=== PATIENT | male | born 1990 | race Hispanic/Latino ===

== ENCOUNTER 2017-07-30 15:42 | Emergency (ER) | payer OTHER ==
[~2017-07-30 15:42] MED LIST: CEPH500B PO
[2017-07-30] MEDS ORDERED: KETOROLAC TROMETHAMINE 30MG/ML ONE (16:08)
[2017-07-30 16:09] LABS: APPEARANCE,URINE Clear (CLEAR); BILIRUBIN,URINE Negative (NEGATIVE); COLOR,URINE Dark Yellow (YELLOW); GLUCOSE, URINE (UA) Negative (NEGATIVE); KETONES,URINE Negative (NEGATIVE); LEUKOCYTE ESTERASE ,URINE Negative (NEGATIVE); NITRATE,URINE Negative (NEGATIVE); OCCULT BLOOD,URINE Negative (NEGATIVE); PROTEIN,URINE Trace (NEGATIVE)
[2017-07-30 16:14] LABS: BASOPHILS % (AUTO) 0.7 % (0.0-5.0); EOSINOPHILS % (AUTO) 1.9 % (0.0-8.0); HEMATOCRIT 44.5 % (42-54); LYMPHOCYTES % (AUTO) 20.9 % (21.0-51.0); MEAN CORPUSCULAR HEMOGLOBIN 29.3 pg (27.0-33.0); MEAN CORPUSCULAR HGB CONC 34.2 g/dL (32.0-36.0); MEAN CORPUSCULAR VOLUME 85.6 fL (79-99); MONOCYTES % (AUTO) 3.1 % (3.0-13.0); NEUTROPHILS % (AUTO) 73.4 % (40.0-77.0); PLATELET COUNT (AUTO) 267 K/uL (130-400); WHITE BLOOD COUNT (AUTO) 9.5 K/uL (4.8-10.8)
[2017-07-30 16:25] LABS: CREATININE 1.1 mg/dL (0.5-1.5); POTASSIUM 3.5 mmol/L (3.5-5.1)
== END 2017-07-30 16:58 | disposition home or self-care (01) ==
LOC: EDH 15:42
DX: R30.0 Dysuria (principal); R10.30 Lower abdominal pain, unspecified; Z72.0 Tobacco use
CPT/HCPCS: 36415; 80048; 81003; 85025; 87486; 87797; 96372; 99284; J1885

== ENCOUNTER 2018-07-28 07:41 | Emergency (ER) | payer SELFPAY ==
[2018-07-28] MEDS ORDERED: LIDOCAINE 5% TOPICAL PATCH TP ONE (08:51)
[2018-07-28] MEDS ORDERED: KETOROLAC TROMETHAMINE 60 MG/2 ML VIAL ONE (08:51)
[2018-07-28] MEDS ORDERED: ORPHENADRINE CITRATE 30 MG/ML ML ONE (08:51)
== END 2018-07-28 10:14 | disposition home or self-care (01) ==
LOC: EDH 07:41
DX: S29.092A Other injury of muscle and tendon of back wall of thorax, initial encounter (principal); M62.830 Muscle spasm of back; Z90.49 Acquired absence of other specified parts of digestive tract; Z87.891 Personal history of nicotine dependence; X50.1XXA Overexertion from prolonged static or awkward postures, initial encounter; Y93.89 Activity, other specified; Y92.89 Other specified places as the place of occurrence of the external cause; Y99.8 Other external cause status
CPT/HCPCS: 96372 ×2; 99284; J1885; J2360

== ENCOUNTER 2021-06-20 04:58 | Inpatient (IN) | payer OTHER ==
[~2021-06-20] VITALS: Ht 180.3 cm; Wt 105.0 kg
[2021-06-20 05:22] LABS: BASOPHILS % (AUTO) 0.6 % (0.0-5.0); EOSINOPHILS % (AUTO) 4.6 % (0.0-8.0); HEMATOCRIT 48.1 % (42-54); MEAN CORPUSCULAR HEMOGLOBIN 29.2 pg (27.0-33.0); MEAN CORPUSCULAR HGB CONC 33.5 g/dL (32.0-36.0); MEAN CORPUSCULAR VOLUME 87.1 fL (79-99); MONOCYTES % (AUTO) 7.3 % (3.0-13.0); NEUTROPHILS % (AUTO) 52.4 % (40.0-77.0); PLATELET COUNT (AUTO) 229 K/uL (130-400); RED BLOOD CELL COUNT(AUTO) 5.52 MIL/uL (4.50-6.20); RED CELL DISTRIBUTION WIDTH 12.7 % (11.0-15.5); WHITE BLOOD COUNT (AUTO) 7.3 K/uL (4.8-10.8)
[2021-06-20 05:31] LABS: CREATININE 0.8 mg/dL (0.5-1.5); POTASSIUM 3.8 mmol/L (3.5-5.1)
[2021-06-20 05:36] LABS: ALBUMIN 4.2 g/dL (3.5-5.0); BILIRUBIN,TOTAL 0.5 mg/dL (0.2-1.0); TOTAL PROTEIN, SERUM 8.6 g/dL (6.0-8.3)
[2021-06-20 05:56] LABS: APPEARANCE,URINE CLEAR (CLEAR); BILIRUBIN,URINE NEGATIVE (NEGATIVE); COLOR,URINE YELLOW (YELLOW); GLUCOSE, URINE (UA) NEGATIVE (NEGATIVE); KETONES,URINE NEGATIVE (NEGATIVE); LEUKOCYTE ESTERASE ,URINE NEGATIVE (NEGATIVE); NITRATE,URINE NEGATIVE (NEGATIVE); OCCULT BLOOD,URINE NEGATIVE (NEGATIVE); PROTEIN,URINE TRACE mg/dL (NEGATIVE)
[2021-06-20] MEDS ORDERED: 0.9%NACL 1000ML 1,000 ML IV ONE (06:00)
[2021-06-20] MEDS ORDERED: KETOROLAC 15MG/ML VIAL (15MG/ML) IV ONE (06:00)
[2021-06-20] MEDS ORDERED: ZOSYN 3.375GM+NS 50ML 50 ML ONE (08:26)
[2021-06-20] MEDS ORDERED: 0.9%NACL 50ML 50 ML IV ONE (08:27)
[2021-06-20] MEDS ORDERED: ZOSYN 3.375GM +NS 50ML IV ONE (08:30)
[2021-06-20] MEDS: LACTATED RINGERS 1000ML 1,000 ML IV SCH (09:00)
[2021-06-20] MEDS: ZOSYN 3.375GM +NS 50ML IV SCH ×2 (16:19→22:10)
[2021-06-20] MEDS: MORPHINE 2 MG SYG IVP PRN (16:20)
[2021-06-20 17:28] VITALS: BP 124/74
[2021-06-20 20:28] VITALS: BP 128/77
[2021-06-21] MEDS: LACTATED RINGERS 1000ML 1,000 ML IV SCH ×3 (00:14→21:07)
[2021-06-21 00:28] VITALS: BP 106/62
[2021-06-21 04:28] VITALS: BP 122/67
[2021-06-21] MEDS: ZOSYN 3.375GM +NS 50ML IV SCH ×3 (05:23→21:06)
[2021-06-21] MEDS ORDERED: NAPR-1023 PO (07:19)
[2021-06-21 07:38] LABS: BASOPHILS % (AUTO) 0.6 % (0.0-5.0); EOSINOPHILS % (AUTO) 2.8 % (0.0-8.0); HEMATOCRIT 42.5 % (42-54); LYMPHOCYTES % (AUTO) 22.4 % (21.0-51.0); MEAN CORPUSCULAR HEMOGLOBIN 28.4 pg (27.0-33.0); MEAN CORPUSCULAR HGB CONC 33.2 g/dL (32.0-36.0); MEAN CORPUSCULAR VOLUME 85.7 fL (79-99); MONOCYTES % (AUTO) 5.8 % (3.0-13.0); NEUTROPHILS % (AUTO) 68.1 % (40.0-77.0); PLATELET COUNT (AUTO) 209 K/uL (130-400); RED BLOOD CELL COUNT(AUTO) 4.96 MIL/uL (4.50-6.20); RED CELL DISTRIBUTION WIDTH 12.5 % (11.0-15.5); WHITE BLOOD COUNT (AUTO) 6.9 K/uL (4.8-10.8)
[2021-06-21 08:00] VITALS: BP 122/68
[2021-06-21 08:43] LABS: CREATININE 0.9 mg/dL (0.5-1.5); POTASSIUM 3.8 mmol/L (3.5-5.1)
[2021-06-21 11:39] VITALS: BP 123/68
[2021-06-21] MEDS: MORPHINE 2 MG SYG IVP PRN (14:50)
[2021-06-21 16:00] VITALS: BP 132/73
[2021-06-21 20:28] VITALS: BP 130/79
[2021-06-22] VITALS (7 sets, daily range): BP systolic 122–129; BP diastolic 70–78
[2021-06-22 04:37] LABS: BASOPHILS % (AUTO) 0.7 % (0.0-5.0); EOSINOPHILS % (AUTO) 4.2 % (0.0-8.0); HEMATOCRIT 41.6 % (42-54); LYMPHOCYTES % (AUTO) 27.1 % (21.0-51.0); MEAN CORPUSCULAR HEMOGLOBIN 29.1 pg (27.0-33.0); MEAN CORPUSCULAR HGB CONC 33.4 g/dL (32.0-36.0); MEAN CORPUSCULAR VOLUME 87.2 fL (79-99); MONOCYTES % (AUTO) 6.8 % (3.0-13.0); NEUTROPHILS % (AUTO) 60.8 % (40.0-77.0); PLATELET COUNT (AUTO) 229 K/uL (130-400); RED BLOOD CELL COUNT(AUTO) 4.77 MIL/uL (4.50-6.20); RED CELL DISTRIBUTION WIDTH 12.2 % (11.0-15.5); WHITE BLOOD COUNT (AUTO) 7.5 K/uL (4.8-10.8)
[2021-06-22 05:05] LABS: ALBUMIN 3.5 g/dL (3.5-5.0); BILIRUBIN,TOTAL 0.9 mg/dL (0.2-1.0); CREATININE 0.9 mg/dL (0.5-1.5); POTASSIUM 3.1 mmol/L (3.5-5.1); TOTAL PROTEIN, SERUM 7.5 g/dL (6.0-8.3)
[2021-06-22] MEDS: LACTATED RINGERS 1000ML 1,000 ML IV SCH ×2 (05:26→16:54)
[2021-06-22] MEDS: ZOSYN 3.375GM +NS 50ML IV SCH ×3 (05:26→20:03)
[2021-06-23] MEDS ORDERED: LIDOCAINE HCL-MPF 1% 2ML VIAL IV PRN (01:30)
[2021-06-23] MEDS ORDERED: POTASSIUM CHLORIDE 20MEQ/100ML 100 ML IV PRN (01:30)
[2021-06-23 04:23] VITALS: BP 135/70
[2021-06-23] MEDS: ZOSYN 3.375GM +NS 50ML IV SCH ×3 (05:16→20:53)
[2021-06-23 05:19] LABS: HEMATOCRIT 42.5 % (42-54); MEAN CORPUSCULAR HEMOGLOBIN 28.6 pg (27.0-33.0); MEAN CORPUSCULAR HGB CONC 33.6 g/dL (32.0-36.0); RED CELL DISTRIBUTION WIDTH 12.1 % (11.0-15.5)
[2021-06-23 05:32] LABS: POTASSIUM 3.7 mmol/L (3.5-5.1)
[2021-06-23 08:00] VITALS: BP 127/78
[2021-06-23] MEDS ORDERED: DEXTROSE 5 %-0.45 % NACL 500 ML IV SCH (08:30)
[2021-06-23 12:00] VITALS: BP 146/86
[2021-06-23] MEDS ORDERED: DEXTROSE 5 %-0.45 % NACL 1,000 ML IV SCH (12:30)
[2021-06-23 16:00] VITALS: BP 104/69
[2021-06-23 19:00] VITALS: BP 115/80
[2021-06-23] MEDS ORDERED: GLUCAGON 1MG KIT 1 MG ML IM PRN (21:30)
[2021-06-23] MEDS ORDERED: DEXTROSE 50%-WATER 50 ML DISP.SYRIN IV PRN (21:30)
[2021-06-24] VITALS: BP 139/75
[2021-06-24 04:00] VITALS: BP 118/68
[2021-06-24] MEDS: ZOSYN 3.375GM +NS 50ML IV SCH ×3 (04:37→20:39)
[2021-06-24 04:41] LABS: HEMATOCRIT 43.4 % (42-54); MEAN CORPUSCULAR HEMOGLOBIN 29.1 pg (27.0-33.0); MEAN CORPUSCULAR HGB CONC 33.9 g/dL (32.0-36.0); MEAN CORPUSCULAR VOLUME 85.8 fL (79-99); RED BLOOD CELL COUNT(AUTO) 5.06 MIL/uL (4.50-6.20); RED CELL DISTRIBUTION WIDTH 12.5 % (11.0-15.5); WHITE BLOOD COUNT (AUTO) 8.8 K/uL (4.8-10.8)
[2021-06-24 04:47] LABS: CREATININE 1.1 mg/dL (0.5-1.5); POTASSIUM 3.4 mmol/L (3.5-5.1)
[2021-06-24 08:00] VITALS: BP 151/74
[2021-06-24] MEDS: ONDANSETRON 4MG INJ IVP PRN (09:07)
[2021-06-24 12:01] VITALS: BP 133/79
[2021-06-24 16:00] VITALS: BP 134/81
[2021-06-24 19:00] VITALS: BP 134/81
[2021-06-25] VITALS: BP 133/70
[2021-06-25 04:00] VITALS: BP 106/74
[2021-06-25 04:21] LABS: HEMATOCRIT 45.9 % (42-54); MEAN CORPUSCULAR HEMOGLOBIN 28.4 pg (27.0-33.0); MEAN CORPUSCULAR HGB CONC 33.1 g/dL (32.0-36.0); MEAN CORPUSCULAR VOLUME 85.8 fL (79-99); RED BLOOD CELL COUNT(AUTO) 5.35 MIL/uL (4.50-6.20); RED CELL DISTRIBUTION WIDTH 12.5 % (11.0-15.5); WHITE BLOOD COUNT (AUTO) 9.3 K/uL (4.8-10.8)
[2021-06-25] MEDS: ZOSYN 3.375GM +NS 50ML IV SCH ×3 (04:32→20:52)
[2021-06-25 04:37] LABS: CREATININE 0.9 mg/dL (0.5-1.5); POTASSIUM 3.3 mmol/L (3.5-5.1)
[2021-06-25] MEDS ORDERED: IOHEXOL-350 75 ML VIAL IV ONE (07:30)
[2021-06-25 08:00] VITALS: BP 124/69
[2021-06-25] MEDS ORDERED: KCL 20 MEQ ERTAB PO PRN (09:30)
[2021-06-25] MEDS ORDERED: LIDOCAINE HCL-MPF 1% 2ML VIAL IV PRN (09:30)
[2021-06-25] MEDS ORDERED: POTASSIUM CHLORIDE 20MEQ/100ML 100 ML IV PRN (09:30)
[2021-06-25] MEDS ORDERED: POTASSIUM CHLORIDE 10% ELIXIR 20 MEQ/15 ML UDCUP PO PRN (09:30)
[2021-06-25 12:00] VITALS: BP 115/71
[2021-06-25 15:52] VITALS: BP 115/67
[2021-06-25 19:00] VITALS: BP 147/86
[2021-06-25] MEDS: ONDANSETRON 4MG INJ IVP PRN (23:15)
[2021-06-26] VITALS: BP 129/78
[2021-06-26 04:00] VITALS: BP 124/71
[2021-06-26] MEDS: ZOSYN 3.375GM +NS 50ML IV SCH (04:19)
[2021-06-26 04:44] LABS: HEMATOCRIT 45.3 % (42-54); MEAN CORPUSCULAR HEMOGLOBIN 29.2 pg (27.0-33.0); MEAN CORPUSCULAR HGB CONC 34.2 g/dL (32.0-36.0); MEAN CORPUSCULAR VOLUME 85.3 fL (79-99); RED BLOOD CELL COUNT(AUTO) 5.31 MIL/uL (4.50-6.20); RED CELL DISTRIBUTION WIDTH 12.7 % (11.0-15.5); WHITE BLOOD COUNT (AUTO) 10.6 K/uL (4.8-10.8)
[2021-06-26 04:58] LABS: CREATININE 1.1 mg/dL (0.5-1.5); POTASSIUM 3.2 mmol/L (3.5-5.1)
[2021-06-26 07:54] VITALS: BP 131/72
[2021-06-26] MEDS ORDERED: METR-172 PO (09:38)
[2021-06-26] MEDS ORDERED: DICY10CA13 PO (09:38)
[2021-06-26] MEDS ORDERED: SULF1TAB42 PO (09:51)
[2021-06-26] MEDS ORDERED: POTASSIUM CHLORIDE 10% ELIXIR 20 MEQ/15 ML UDCUP PO SCH (10:00)
== END 2021-06-26 10:45 | disposition home or self-care (01) | DRG 379 ==
LOC: EDH 04:58 → EDHIP 04:59 → 4DH 15:22
PROVIDERS: ADMIT Hospitalist; ATTEND Hospitalist
DX: K57.21 Diverticulitis of large intestine with perforation and abscess with bleeding (principal); E87.6 Hypokalemia; Z90.49 Acquired absence of other specified parts of digestive tract; Z82.49 Family history of ischemic heart disease and other diseases of the circulatory system; F17.210 Nicotine dependence, cigarettes, uncomplicated; E66.9 Obesity, unspecified; Z68.32 Body mass index [BMI] 32.0-32.9, adult
CPT/HCPCS: 36415; 74176; 74177; 80048; 80053; 81003; 83690; 84145; 85025; 85027; 87077; 87088; 87186; 93005; G0378; J1885; J2405; J2543; J3480; J3490; J7120; Q9967

== ENCOUNTER 2021-06-27 18:54 | Emergency (ER) | payer OTHER ==
[~2021-06-27] VITALS: Ht 180.3 cm; Wt 106.6 kg
[~2021-06-27 18:54] MED LIST changes: -CEPH500B PO; +DICY10CA13 PO; +METR-172 PO; +SULF1TAB42 PO
[2021-06-27 19:25] LABS: CREATININE 1.1 mg/dL (0.5-1.5); POTASSIUM 3.5 mmol/L (3.5-5.1)
[2021-06-27 19:27] LABS: BASOPHILS % (AUTO) 0.6 % (0.0-5.0); EOSINOPHILS % (AUTO) 2.9 % (0.0-8.0); HEMATOCRIT 49.6 % (42-54); LYMPHOCYTES % (AUTO) 20.4 % (21.0-51.0); MEAN CORPUSCULAR HEMOGLOBIN 28.3 pg (27.0-33.0); MEAN CORPUSCULAR HGB CONC 32.9 g/dL (32.0-36.0); MEAN CORPUSCULAR VOLUME 86.3 fL (79-99); MONOCYTES % (AUTO) 5.9 % (3.0-13.0); NEUTROPHILS % (AUTO) 69.9 % (40.0-77.0); PLATELET COUNT (AUTO) 286 K/uL (130-400); RED BLOOD CELL COUNT(AUTO) 5.75 MIL/uL (4.50-6.20); RED CELL DISTRIBUTION WIDTH 12.5 % (11.0-15.5); WHITE BLOOD COUNT (AUTO) 8.9 K/uL (4.8-10.8)
[2021-06-27] MEDS ORDERED: FAMOTIDINE 20MG VIAL IV ONE ×2 (19:29→19:30)
[2021-06-27] MEDS ORDERED: DiphenhydrAMINE HCL 50 MG/ML VIAL ONE (19:29)
[2021-06-27] MEDS ORDERED: ONDANSETRON 4MG INJ ONE (19:29)
[2021-06-27 19:30] LABS: ALBUMIN 4.3 g/dL (3.5-5.0); BILIRUBIN,TOTAL 0.6 mg/dL (0.2-1.0)
[2021-06-27] MEDS ORDERED: ONDANSETRON 4MG INJ IVP ONE (19:30)
[2021-06-27] MEDS ORDERED: DiphenhydrAMINE HCL 50 MG/ML VIAL IV ONE (19:30)
[2021-06-27 20:48] VITALS: BP 126/71
== END 2021-06-27 20:54 | disposition home or self-care (01) ==
LOC: EDH 18:54
DX: K57.92 Diverticulitis of intestine, part unspecified, without perforation or abscess without bleeding (principal); Z79.1 Long term (current) use of non-steroidal anti-inflammatories (NSAID); Z90.49 Acquired absence of other specified parts of digestive tract
CPT/HCPCS: 36415; 80053; 83690; 85025; 96374; 96375; 99284; J1200; J2405; J3490

== ENCOUNTER 2021-07-05 20:01 | Emergency (ER) | payer OTHER ==
[~2021-07-05] VITALS: Ht 154.9 cm; Wt 109.3 kg
[2021-07-05 20:07] VITALS: BP 138/79
== END 2021-07-05 20:47 | disposition home or self-care (01) ==
LOC: EDH 20:01
DX: R21 Rash and other nonspecific skin eruption (principal); T37.3X5A Adverse effect of other antiprotozoal drugs, initial encounter; Y92.89 Other specified places as the place of occurrence of the external cause; Z90.49 Acquired absence of other specified parts of digestive tract
CPT/HCPCS: 99281

== ENCOUNTER 2021-07-11 01:14 | Inpatient (IN) | payer OTHER ==
[~2021-07-11] VITALS: Ht 180.3 cm; Wt 105.2 kg
[2021-07-11 01:46] LABS: BASOPHILS % (AUTO) 0.7 % (0.0-5.0); EOSINOPHILS % (AUTO) 5.1 % (0.0-8.0); HEMATOCRIT 47.2 % (42-54); LYMPHOCYTES % (AUTO) 26.7 % (21.0-51.0); MEAN CORPUSCULAR HEMOGLOBIN 29.2 pg (27.0-33.0); MEAN CORPUSCULAR HGB CONC 33.3 g/dL (32.0-36.0); MEAN CORPUSCULAR VOLUME 87.7 fL (79-99); MONOCYTES % (AUTO) 6.9 % (3.0-13.0); NEUTROPHILS % (AUTO) 60.4 % (40.0-77.0); PLATELET COUNT (AUTO) 234 K/uL (130-400); RED BLOOD CELL COUNT(AUTO) 5.38 MIL/uL (4.50-6.20); RED CELL DISTRIBUTION WIDTH 12.8 % (11.0-15.5); WHITE BLOOD COUNT (AUTO) 8.2 K/uL (4.8-10.8)
[2021-07-11] MEDS ORDERED: ONDANSETRON 4MG INJ ONE (01:46)
[2021-07-11] MEDS ORDERED: MORPHINE 4 MG SYG ONE (01:46)
[2021-07-11 01:53] LABS: APPEARANCE,URINE Clear (CLEAR); BILIRUBIN,URINE Negative (NEGATIVE); COLOR,URINE Yellow (YELLOW); GLUCOSE, URINE (UA) Negative (NEGATIVE); KETONES,URINE Negative (NEGATIVE); LEUKOCYTE ESTERASE ,URINE Negative (NEGATIVE); NITRATE,URINE Negative (NEGATIVE); OCCULT BLOOD,URINE Negative (NEGATIVE); PROTEIN,URINE Negative (NEGATIVE); UROBILINOGEN,URINE 0.2 mg/dL (0.2-1.0)
[2021-07-11 01:58] LABS: CREATININE 1.2 mg/dL (0.5-1.5); POTASSIUM 3.2 mmol/L (3.5-5.1)
[2021-07-11] MEDS ORDERED: MORPHINE 4 MG SYG IVP ONE (02:00)
[2021-07-11] MEDS ORDERED: ONDANSETRON 4MG INJ IVP ONE (02:00)
[2021-07-11 02:02] LABS: ALBUMIN 4.2 g/dL (3.5-5.0); BILIRUBIN,TOTAL 0.5 mg/dL (0.2-1.0); CRP QUANTITATIVE 11.4 mg/L (0.00-9.0); TOTAL PROTEIN, SERUM 8.7 g/dL (6.0-8.3)
[2021-07-11] MEDS ORDERED: IOHEXOL-350 75 ML VIAL IV ONE (02:58)
[2021-07-11] MEDS ORDERED: ZOSYN 3.375GM +NS 50ML IV SCH (04:00)
[2021-07-11] MEDS ORDERED: DIATR MEGLU/DIATRIZOATE SODIUM 30 ML BOTTLE ONE (04:48)
[2021-07-11] MEDS ORDERED: ACETAMINOPHEN 325 MG TAB PO PRN ×2 (06:00)
[2021-07-11] MEDS ORDERED: LACTULOSE 20 GM/30 ML UDCUP PO PRN (06:00)
[2021-07-11] MEDS: 0.9%NACL 1000ML 1,000 ML IV SCH ×2 (06:34→21:03)
[2021-07-11 09:39] VITALS: BP 120/76
[2021-07-11 12:28] VITALS: BP 104/64
[2021-07-11] MEDS: ZOSYN 3.375GM+NS 50ML 50 ML IV SCH ×2 (13:00→20:32)
[2021-07-11] MEDS: POTASSIUM CHLORIDE 20MEQ/100ML 100 ML IV PRN ×2 (13:29→20:33)
[2021-07-11] MEDS: LIDOCAINE HCL-MPF 1% 2ML VIAL IV PRN ×2 (13:29→20:32)
[2021-07-11] MEDS: MORPHINE 2 MG SYG IV PRN (14:58)
[2021-07-11 16:13] VITALS: BP 108/67
[2021-07-11 19:00] VITALS: BP 108/67
[2021-07-11] MEDS: METRONIDAZOLE 500MG/100ML BAG 100 ML IVPB SCH (21:02)
[2021-07-12] VITALS (7 sets, daily range): BP systolic 100–119; BP diastolic 61–72
[2021-07-12] MEDS: 0.9%NACL 1000ML 1,000 ML IV SCH ×3 (01:03→20:52)
[2021-07-12] MEDS: ONDANSETRON 4MG INJ IV PRN ×3 (01:10→21:01)
[2021-07-12] MEDS: ZOSYN 3.375GM+NS 50ML 50 ML IV SCH ×3 (04:07→20:40)
[2021-07-12] MEDS: METRONIDAZOLE 500MG/100ML BAG 100 ML IVPB SCH ×3 (04:55→21:01)
[2021-07-12 05:35] LABS: BASOPHILS % (AUTO) 0.7 % (0.0-5.0); EOSINOPHILS % (AUTO) 6.1 % (0.0-8.0); HEMATOCRIT 41.5 % (42-54); LYMPHOCYTES % (AUTO) 21.1 % (21.0-51.0); MEAN CORPUSCULAR HEMOGLOBIN 28.9 pg (27.0-33.0); MEAN CORPUSCULAR VOLUME 87.6 fL (79-99); MONOCYTES % (AUTO) 9.4 % (3.0-13.0); NEUTROPHILS % (AUTO) 62.4 % (40.0-77.0); PLATELET COUNT (AUTO) 187 K/uL (130-400); RED BLOOD CELL COUNT(AUTO) 4.74 MIL/uL (4.50-6.20); RED CELL DISTRIBUTION WIDTH 12.7 % (11.0-15.5); WHITE BLOOD COUNT (AUTO) 6.1 K/uL (4.8-10.8)
[2021-07-12 06:13] LABS: ALBUMIN 3.4 g/dL (3.5-5.0); BILIRUBIN,TOTAL 0.6 mg/dL (0.2-1.0); CRP QUANTITATIVE 15.1 mg/L (0.00-9.0); MAGNESIUM 1.9 mg/dL (1.80-2.40); POTASSIUM 4.1 mmol/L (3.5-5.1); TOTAL PROTEIN, SERUM 7.2 g/dL (6.0-8.3)
[2021-07-12 06:49] LABS: ERYTHROCYTE SEDIMENTATION RATE 25 MM/HR (0-15)
[2021-07-12] MEDS: MORPHINE 2 MG SYG IV PRN ×2 (10:56→20:41)
[2021-07-13] MEDS: METRONIDAZOLE 500MG/100ML BAG 100 ML IVPB SCH ×3 (05:20→23:14)
[2021-07-13] MEDS: ZOSYN 3.375GM+NS 50ML 50 ML IV SCH ×3 (05:20→20:39)
[2021-07-13] MEDS: ONDANSETRON 4MG INJ IV PRN ×2 (05:39→23:14)
[2021-07-13] MEDS: 0.9%NACL 1000ML 1,000 ML IV SCH ×2 (05:39→17:19)
[2021-07-13 05:50] VITALS: BP 112/68
[2021-07-13 06:55] VITALS: BP 122/61
[2021-07-13 08:46] LABS: BASOPHILS % (AUTO) 0.4 % (0.0-5.0); EOSINOPHILS % (AUTO) 3.1 % (0.0-8.0); LYMPHOCYTES % (AUTO) 14.3 % (21.0-51.0); MEAN CORPUSCULAR HGB CONC 33.2 g/dL (32.0-36.0); MEAN CORPUSCULAR VOLUME 87.4 fL (79-99); MONOCYTES % (AUTO) 8.7 % (3.0-13.0); NEUTROPHILS % (AUTO) 73.4 % (40.0-77.0); PLATELET COUNT (AUTO) 188 K/uL (130-400); RED BLOOD CELL COUNT(AUTO) 4.69 MIL/uL (4.50-6.20); RED CELL DISTRIBUTION WIDTH 12.4 % (11.0-15.5); WHITE BLOOD COUNT (AUTO) 7.7 K/uL (4.8-10.8)
[2021-07-13 08:53] LABS: CREATININE 0.9 mg/dL (0.5-1.5); POTASSIUM 4.4 mmol/L (3.5-5.1)
[2021-07-13 12:00] VITALS: BP 114/74
[2021-07-13 16:00] VITALS: BP 121/83
[2021-07-13 19:51] VITALS: BP 107/69
[2021-07-13 23:11] VITALS: BP 111/70
[2021-07-14 03:39] VITALS: BP 106/67
[2021-07-14] MEDS: ZOSYN 3.375GM+NS 50ML 50 ML IV SCH ×3 (03:47→19:45)
[2021-07-14] MEDS: 0.9%NACL 1000ML 1,000 ML IV SCH ×2 (03:49→19:46)
[2021-07-14] MEDS: METRONIDAZOLE 500MG/100ML BAG 100 ML IVPB SCH ×3 (06:14→22:56)
[2021-07-14 07:30] VITALS: BP 111/74
[2021-07-14] MEDS: ONDANSETRON 4MG INJ IV PRN (11:30)
[2021-07-14 11:35] VITALS: BP 100/64
[2021-07-14 16:00] VITALS: BP 109/80
[2021-07-14 20:00] VITALS: BP 114/69
[2021-07-15] VITALS (7 sets, daily range): BP systolic 103–125; BP diastolic 66–81
[2021-07-15] MEDS: ONDANSETRON 4MG INJ IV PRN ×3 (02:28→21:43)
[2021-07-15] MEDS: METRONIDAZOLE 500MG/100ML BAG 100 ML IVPB SCH ×3 (05:31→21:43)
[2021-07-15] MEDS: ZOSYN 3.375GM+NS 50ML 50 ML IV SCH ×3 (05:31→21:42)
[2021-07-15] MEDS: 0.9%NACL 1000ML 1,000 ML IV SCH ×3 (05:33→21:52)
[2021-07-15 06:00] LABS: BASOPHILS % (AUTO) 0.5 % (0.0-5.0); EOSINOPHILS % (AUTO) 5.8 % (0.0-8.0); HEMATOCRIT 38.2 % (42-54); LYMPHOCYTES % (AUTO) 24.5 % (21.0-51.0); MEAN CORPUSCULAR HEMOGLOBIN 29.3 pg (27.0-33.0); MEAN CORPUSCULAR HGB CONC 34.3 g/dL (32.0-36.0); MEAN CORPUSCULAR VOLUME 85.5 fL (79-99); MONOCYTES % (AUTO) 9.3 % (3.0-13.0); NEUTROPHILS % (AUTO) 59.6 % (40.0-77.0); PLATELET COUNT (AUTO) 181 K/uL (130-400); RED BLOOD CELL COUNT(AUTO) 4.47 MIL/uL (4.50-6.20); RED CELL DISTRIBUTION WIDTH 12.2 % (11.0-15.5)
[2021-07-15 06:04] LABS: CREATININE 0.9 mg/dL (0.5-1.5); POTASSIUM 3.8 mmol/L (3.5-5.1)
[2021-07-15] MEDS ORDERED: DIATR MEGLU/DIATRIZOATE SODIUM 30 ML BOTTLE ONE (06:19)
[2021-07-15] MEDS ORDERED: IOHEXOL-350 75 ML VIAL IV ONE (10:00)
[2021-07-16 03:34] VITALS: BP 106/70
[2021-07-16] MEDS: ONDANSETRON 4MG INJ IV PRN (05:34)
[2021-07-16] MEDS: METRONIDAZOLE 500MG/100ML BAG 100 ML IVPB SCH (05:34)
[2021-07-16] MEDS: 0.9%NACL 1000ML 1,000 ML IV SCH (06:00)
[2021-07-16] MEDS: ZOSYN 3.375GM+NS 50ML 50 ML IV SCH (07:03)
[2021-07-16 07:30] VITALS: BP 112/75
[2021-07-16] MEDS ORDERED: METR-172 PO ×2 (10:22→11:19)
[2021-07-16] MEDS ORDERED: LEVO750T46 PO ×2 (10:22→11:19)
[2021-07-16] MEDS ORDERED: FLUC100T PO (11:19)
[2021-07-16] MEDS ORDERED: POLY17PO4 PO (11:19)
== END 2021-07-16 12:00 | disposition home or self-care (01) | DRG 392 ==
LOC: EDH 01:14 → EDHIP 05:48 → OBSVTOIN 05:48 → 3DH 09:39
PROVIDERS: ADMIT Internal Medicine; ATTEND Internal Medicine
DX: K57.20 Diverticulitis of large intestine with perforation and abscess without bleeding (principal); N32.1 Vesicointestinal fistula; E87.6 Hypokalemia; F17.210 Nicotine dependence, cigarettes, uncomplicated; Z82.49 Family history of ischemic heart disease and other diseases of the circulatory system; Z90.49 Acquired absence of other specified parts of digestive tract
CPT/HCPCS: 36415; 74176; 74177; 74178; 80048; 80053; 81003; 83735; 84132; 85025; 85651; 86140; G0378; J2270; J2405; J2543; J3480; J3490; J7030; Q9963; Q9967

== ENCOUNTER 2021-12-07 18:30 | Emergency (ER) | payer BC ==
[~2021-12-07] VITALS: Ht 177.8 cm; Wt 107.0 kg
[2021-12-07 19:33] LABS: BASOPHILS % (AUTO) 0.8 % (0.0-5.0); HEMATOCRIT 47.3 % (42-54); LYMPHOCYTES % (AUTO) 30.5 % (21.0-51.0); MEAN CORPUSCULAR HEMOGLOBIN 29.1 pg (27.0-33.0); MEAN CORPUSCULAR VOLUME 85.5 fL (79-99); MONOCYTES % (AUTO) 7.6 % (3.0-13.0); NEUTROPHILS % (AUTO) 57.9 % (40.0-77.0); PLATELET COUNT (AUTO) 201 K/uL (130-400); RED BLOOD CELL COUNT(AUTO) 5.53 MIL/uL (4.50-6.20); RED CELL DISTRIBUTION WIDTH 12.9 % (11.0-15.5); WHITE BLOOD COUNT (AUTO) 6.4 K/uL (4.8-10.8)
[2021-12-07 19:48] LABS: CREATININE 0.9 mg/dL (0.5-1.5); POTASSIUM 3.9 mmol/L (3.5-5.1)
[2021-12-07 19:53] LABS: ALBUMIN 4.4 g/dL (3.5-5.0)
[2021-12-07] MEDS ORDERED: ONDANSETRON 4MG INJ IVP ONE (20:30)
[2021-12-07] MEDS ORDERED: 0.9% NACL 500ML IV.SOLN 500 ML IV ONE (20:30)
[2021-12-07] MEDS ORDERED: ACETAMINOPHEN 500 MG TABLET PO ONE (20:30)
[2021-12-07 20:42] LABS: APPEARANCE,URINE CLEAR (CLEAR); BILIRUBIN,URINE NEGATIVE (NEGATIVE); COLOR,URINE LIGHT-YELLOW (YELLOW); GLUCOSE, URINE (UA) NEGATIVE (NEGATIVE); KETONES,URINE NEGATIVE (NEGATIVE); LEUKOCYTE ESTERASE ,URINE NEGATIVE Leu/uL (NEGATIVE); NITRATE,URINE NEGATIVE (NEGATIVE); OCCULT BLOOD,URINE NEGATIVE (NEGATIVE); PH,URINE 5.5 (5.0-8.0); PROTEIN,URINE NEGATIVE (NEGATIVE); UROBILINOGEN,URINE 0.2 mg/dL (0.2-1.0)
[2021-12-07 22:29] VITALS: BP 125/72
== END 2021-12-07 22:30 | disposition home or self-care (01) ==
LOC: EDH 18:30
DX: R10.9 Unspecified abdominal pain (principal); R42 Dizziness and giddiness; R11.0 Nausea; Z20.822 Contact with and (suspected) exposure to COVID-19; Z90.49 Acquired absence of other specified parts of digestive tract; Z93.3 Colostomy status
CPT/HCPCS: 74177; 99284; 96374; 87635; 96361; 80053; 83690; 85025; 87880; 87804 ×2; 81003; 36415; C9803; J7040; J2405; Q9967

== ENCOUNTER 2022-09-09 14:45 | Emergency (ER) | payer OTHER ==
[~2022-09-09] VITALS: Ht 180.3 cm; Wt 111.1 kg
[2022-09-09 14:50] VITALS: BP 130/61
== END 2022-09-09 19:34 | disposition left against medical advice (07) ==
LOC: EDH 14:45
DX: R10.9 Unspecified abdominal pain (principal); Z53.21 Procedure and treatment not carried out due to patient leaving prior to being seen by health care provider
CPT/HCPCS: 99281

== ENCOUNTER 2023-05-30 19:11 | Emergency (ER) | payer BC, OTHER ==
[~2023-05-30] VITALS: Ht 162.6 cm; Wt 120.2 kg
[2023-05-30 20:01] LABS: BASOPHILS # (AUTO) 0.05 K/uL (0.00-0.20); BASOPHILS % (AUTO) 0.6 % (0.0-5.0); EOSINOPHILS # (AUTO) 0.21 K/uL (0.00-0.70); EOSINOPHILS % (AUTO) 2.5 % (0.0-8.0); IMMATURE GRANULOCYTE ABSOLUTE 0.02 K/uL (0-1); LYMPHOCYTES # (AUTO) 2.1 K/uL (1.0-4.8); LYMPHOCYTES % (AUTO) 24.8 % (21.0-51.0); MEAN CORPUSCULAR HEMOGLOBIN 28.8 pg (27.0-33.0); MEAN CORPUSCULAR HGB CONC 33.7 g/dL (32.0-36.0); MEAN CORPUSCULAR VOLUME 85.5 fL (79-99); MONOCYTES # (AUTO) 0.5 K/uL (0.1-1.0); MONOCYTES % (AUTO) 5.7 % (3.0-13.0); NEUTROPHILS # (AUTO) 5.6 K/uL (1.8-7.7); NEUTROPHILS % (AUTO) 66.2 % (40.0-77.0); PLATELET COUNT (AUTO) 242 K/uL (130-400); RED BLOOD CELL COUNT(AUTO) 5.03 MIL/uL (4.50-6.20); RED CELL DISTRIBUTION WIDTH 13.2 % (11.0-15.5); WHITE BLOOD COUNT (AUTO) 8.5 K/uL (4.8-10.8)
[2023-05-30] MEDS ORDERED: CEPH500C2 PO (20:08)
[2023-05-30] MEDS ORDERED: FAMO-136 PO (20:09)
[2023-05-30 20:13] LABS: CREATININE 1.2 mg/dL (0.5-1.3); POTASSIUM 3.9 mmol/L (3.5-5.1)
[2023-05-30 20:19] LABS: ALBUMIN 3.7 g/dL (3.5-5.0); BILIRUBIN,TOTAL 0.2 mg/dL (0.2-1.0); TOTAL PROTEIN, SERUM 8.1 g/dL (6.0-8.3)
[2023-05-30 20:40] VITALS: BP 126/77; PULSE 88; RESP 17; O2SAT 98
== END 2023-05-30 21:13 | disposition home or self-care (01) ==
LOC: EDH 19:11
DX: S00.462A Insect bite (nonvenomous) of left ear, initial encounter (principal); W57.XXXA Bitten or stung by nonvenomous insect and other nonvenomous arthropods, initial encounter
CPT/HCPCS: 36415; 80053; 85025

== ENCOUNTER 2023-12-30 10:29 | Emergency (ER) | payer BC ==
[~2023-12-30] VITALS: Ht 180.3 cm; Wt 97.5 kg
[~2023-12-30 10:29] MED LIST changes: +CEPH500C2 PO; -DICY10CA13 PO; +FAMO-136 PO; -METR-172 PO; +POLY17PO4 PO; -SULF1TAB42 PO
[2023-12-30 11:06] LABS: BASOPHILS # (AUTO) 0.06 K/uL (0.00-0.20); BASOPHILS % (AUTO) 0.8 % (0.0-5.0); EOSINOPHILS # (AUTO) 0.15 K/uL (0.00-0.70); HEMATOCRIT 46.3 % (42-54); IMMATURE GRANULOCYTE ABSOLUTE 0.05 K/uL (0-1); LYMPHOCYTES # (AUTO) 1.7 K/uL (1.0-4.8); LYMPHOCYTES % (AUTO) 22.1 % (21.0-51.0); MEAN CORPUSCULAR VOLUME 87.7 fL (79-99); MONOCYTES # (AUTO) 0.6 K/uL (0.1-1.0); MONOCYTES % (AUTO) 7.3 % (3.0-13.0); NEUTROPHILS # (AUTO) 5.1 K/uL (1.8-7.7); NEUTROPHILS % (AUTO) 67.1 % (40.0-77.0); PLATELET COUNT (AUTO) 205 K/uL (130-400); RED BLOOD CELL COUNT(AUTO) 5.28 MIL/uL (4.50-6.20); RED CELL DISTRIBUTION WIDTH 13.3 % (11.0-15.5); WHITE BLOOD COUNT (AUTO) 7.6 K/uL (4.8-10.8)
[2023-12-30 11:09] LABS: CREATININE 0.9 mg/dL (0.5-1.3); POTASSIUM 3.7 mmol/L (3.5-5.1)
[2023-12-30] MEDS ORDERED: IOHEXOL 350 MG/ML 100ML INFUS..BTL IV ONE (11:12)
[2023-12-30 11:16] LABS: APPEARANCE,URINE CLEAR (CLEAR); BILIRUBIN,URINE NEGATIVE (NEGATIVE); COLOR,URINE LIGHT-YELLOW (YELLOW); GLUCOSE, URINE (UA) NEGATIVE (NEGATIVE); KETONES,URINE NEGATIVE (NEGATIVE); LEUKOCYTE ESTERASE ,URINE NEGATIVE Leu/uL (NEGATIVE); NITRATE,URINE NEGATIVE (NEGATIVE); OCCULT BLOOD,URINE NEGATIVE (NEGATIVE); PROTEIN,URINE NEGATIVE (NEGATIVE); UROBILINOGEN,URINE 0.2 mg/dL (0.2-1.0)
[2023-12-30] MEDS: ketOROlac 30MG VIAL (30MG/ML) IVP ONE (11:22)
[2023-12-30] MEDS: 0.9%NACL 1000ML 1,000 ML IV ONE (11:23)
[2023-12-30 11:29] LABS: ADD UA MICROSCOPIC NO
[2023-12-30] MEDS ORDERED: IBUP-2077 PO (11:56)
[2023-12-30 12:37] VITALS: BP 127/70; PULSE 68; RESP 20; TEMP 97.8; O2SAT 97
== END 2023-12-30 13:15 | disposition home or self-care (01) ==
LOC: EDH 10:29
DX: K42.9 Umbilical hernia without obstruction or gangrene (principal); Z79.899 Other long term (current) drug therapy; Z98.890 Other specified postprocedural states
CPT/HCPCS: 99284; 74177; 96374; 96361; 80048; 85025; 81003; 36415; J7030; J1885; Q9967

== ENCOUNTER 2024-01-23 14:17 | Emergency (ER) | payer BC ==
[~2024-01-23] VITALS: Ht 180.3 cm; Wt 117.9 kg
[~2024-01-23 14:17] MED LIST changes: +IBUP-2077 PO
[2024-01-23 14:18] VITALS: TEMP 97.9
--- NOTE | 2024-01-23 14:28 | NUR ---
PT JUST NOW PLACED IN MY ED BED 19
[2024-01-23 14:39] LABS: APPEARANCE,URINE CLEAR (CLEAR); BILIRUBIN,URINE NEGATIVE (NEGATIVE); COLOR,URINE YELLOW (YELLOW); GLUCOSE, URINE (UA) NEGATIVE (NEGATIVE); KETONES,URINE NEGATIVE (NEGATIVE); LEUKOCYTE ESTERASE ,URINE NEGATIVE Leu/uL (NEGATIVE); NITRATE,URINE NEGATIVE (NEGATIVE); OCCULT BLOOD,URINE NEGATIVE (NEGATIVE); PH,URINE 5.5 (5.0-8.0); PROTEIN,URINE 10 mg/dL (NEGATIVE); UROBILINOGEN,URINE 0.2 mg/dL (0.2-1.0)
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
[2024-01-23 14:42] LABS: ADD UA MICROSCOPIC YES
[2024-01-23 14:43] LABS: BACTERIA,URINE RARE /HPF (None Seen); MUCUS,URINE FEW LPF (None Seen); RBC,URINE 0-1 /HPF (0-1); SQUAMOUS EPITHELIAL CELL,UR RARE /HPF (0-2); WBC,URINE 0-1 /HPF (0-1)
--- NOTE | 2024-01-23 14:45 | HMCIMG ---
CHEST 1VW REASON: CHEST PAIN COMPARISON: 05/13/2022 FINDINGS: Single view of the chest was obtained. Lungs are clear. Heart size is normal. There is no pulmonary vascular congestion. Mediastinum and bony thorax appear unremarkable. IMPRESSION: 1. Normal single view chest x-ray.
[2024-01-23 14:50] LABS: BASOPHILS # (AUTO) 0.04 K/uL (0.00-0.20); BASOPHILS % (AUTO) 0.4 % (0.0-5.0); EOSINOPHILS # (AUTO) 0.19 K/uL (0.00-0.70); EOSINOPHILS % (AUTO) 2.1 % (0.0-8.0); HEMATOCRIT 44.2 % (42-54); IMMATURE GRANULOCYTE ABSOLUTE 0.02 K/uL (0-1); LYMPHOCYTES # (AUTO) 1.8 K/uL (1.0-4.8); MEAN CORPUSCULAR HEMOGLOBIN 29.4 pg (27.0-33.0); MEAN CORPUSCULAR HGB CONC 33.7 g/dL (32.0-36.0); MEAN CORPUSCULAR VOLUME 87.4 fL (79-99); MONOCYTES # (AUTO) 0.5 K/uL (0.1-1.0); MONOCYTES % (AUTO) 5.2 % (3.0-13.0); NEUTROPHILS # (AUTO) 6.6 K/uL (1.8-7.7); NEUTROPHILS % (AUTO) 72.1 % (40.0-77.0); PLATELET COUNT (AUTO) 204 K/uL (130-400); RED BLOOD CELL COUNT(AUTO) 5.06 MIL/uL (4.50-6.20); RED CELL DISTRIBUTION WIDTH 13.2 % (11.0-15.5); WHITE BLOOD COUNT (AUTO) 9.2 K/uL (4.8-10.8)
[2024-01-23 15:00] LABS: CREATININE 0.9 mg/dL (0.5-1.3); POTASSIUM 3.7 mmol/L (3.5-5.1)
[2024-01-23 15:27] LABS: B-TYPE NATRIURETIC PEPTIDE 10 pg/mL (0-100)
[2024-01-23] MEDS ORDERED: PANTOPrazole 40 MG/VIAL IVP ONE (16:00)
[2024-01-23] MEDS ORDERED: ketOROlac 15MG/ML VIAL (15MG/ML) IV ONE (16:30)
[2024-01-23] MEDS: LIDOCAINE HCL 2% VISCOUS 15 ML UDCUP PO ONE (16:51)
[2024-01-23] MEDS: ketOROlac 15MG/ML VIAL (15MG/ML) IM ONE (16:52)
[2024-01-23] MEDS: MAG/ALUM/SIMETH 30 ML UDCUP PO ONE (16:52)
[2024-01-23] MEDS ORDERED: NAPR-1023 PO (17:17)
[2024-01-23] MEDS ORDERED: PANT40TA PO (17:17)
[2024-01-23 17:25] VITALS: BP 121/81; PULSE 67; RESP 17; O2SAT 100
--- NOTE | 2024-01-24 06:58 | EKG ---
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
== END 2024-01-23 17:40 | disposition home or self-care (01) ==
LOC: EDH 14:17
DX: R07.89 Other chest pain (principal); K21.9 Gastro-esophageal reflux disease without esophagitis; Z79.899 Other long term (current) drug therapy; Z90.49 Acquired absence of other specified parts of digestive tract
CPT/HCPCS: 99291; 82550; 84484 ×2; 80048; 83880; 85025; 81001; 36415; 71045; 96372; 93005; J1885

== ENCOUNTER 2024-03-24 18:12 | Emergency (ER) | payer BC ==
[~2024-03-24] VITALS: Ht 180.3 cm; Wt 120.2 kg
[~2024-03-24 18:12] MED LIST changes: +NAPR-1023 PO; +PANT40TA PO
--- NOTE | 2024-03-24 18:29 | EKG ---
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
[2024-03-24 18:58] VITALS: BP 126/83; PULSE 92; RESP 18; TEMP 97.8
[2024-03-24 19:00] LABS: BASOPHILS # (AUTO) 0.04 K/uL (0.00-0.20); BASOPHILS % (AUTO) 0.3 % (0.0-5.0); EOSINOPHILS # (AUTO) 0.07 K/uL (0.00-0.70); EOSINOPHILS % (AUTO) 0.6 % (0.0-8.0); HEMATOCRIT 48.3 % (42-54); IMMATURE GRANULOCYTE ABSOLUTE 0.04 K/uL (0-1); LYMPHOCYTES # (AUTO) 1.9 K/uL (1.0-4.8); LYMPHOCYTES % (AUTO) 16.1 % (21.0-51.0); MEAN CORPUSCULAR HEMOGLOBIN 29.3 pg (27.0-33.0); MEAN CORPUSCULAR VOLUME 86.4 fL (79-99); MONOCYTES # (AUTO) 0.7 K/uL (0.1-1.0); MONOCYTES % (AUTO) 5.6 % (3.0-13.0); NEUTROPHILS % (AUTO) 77.1 % (40.0-77.0); PLATELET COUNT (AUTO) 251 K/uL (130-400); RED BLOOD CELL COUNT(AUTO) 5.59 MIL/uL (4.50-6.20); RED CELL DISTRIBUTION WIDTH 12.8 % (11.0-15.5); WHITE BLOOD COUNT (AUTO) 11.7 K/uL (4.8-10.8)
--- NOTE | 2024-03-24 19:09 | HMCIMG ---
INDICATION: cp TECHNIQUE: CHEST 1VW COMPARISON: 01/23/2024 FINDINGS/IMPRESSION: Prominent bilateral interstitial markings which may represent bronchitis or vascular congestion in the proper clinical setting. Cardiac silhouette is within normal limits. Mild degenerative changes of the spine. The visualized upper abdomen appears unremarkable.
[2024-03-24 19:26] LABS: MAGNESIUM 2.1 mg/dL (1.80-2.40)
[2024-03-24 19:36] LABS: B-TYPE NATRIURETIC PEPTIDE < 5 pg/mL (0-100)
[2024-03-24] MEDS ORDERED: 0.9%NACL 1000ML 1,000 ML IV ONE (20:00)
--- NOTE | 2024-03-24 21:35 | NUR ---
NO ANSWER WHEN CALLED FOR ROOM PLACEMENT AND MEDICATION ADMINISTRATION
--- NOTE | 2024-03-24 21:36 | NUR ---
PT CALLED FOR BEDDING. AND REVIEW OF LABS WITH ANTONIO GUILLERMO. NO ANSWER. NOT IN MAIN ER. NOT IN LOBBY
--- NOTE | 2024-03-24 21:39 | NUR ---
PT CALLED, NO ANSWER
--- NOTE | 2024-03-24 21:43 | NUR ---
PT CALLED, NO ANSWER
== END 2024-03-24 21:43 | disposition left against medical advice (07) ==
LOC: EDH 18:12
DX: R03.0 Elevated blood-pressure reading, without diagnosis of hypertension (principal); R07.89 Other chest pain; R00.2 Palpitations; Z53.21 Procedure and treatment not carried out due to patient leaving prior to being seen by health care provider
CPT/HCPCS: 36415; 71045; 80048; 82550; 83735; 83880; 84484; 85025; 93005; 99284